=== PATIENT | female | born 1990 | race Caucasian/White ===

== ENCOUNTER 2016-07-01 19:20 | Emergency (ER) | payer OTHER ==
[2016-07-01 19:58] VITALS: TEMP 97.9
[2016-07-01] MEDS ORDERED: SODIUM CHLORIDE 0.9% 1,000 ML IV STA (21:02)
[2016-07-01] MEDS ORDERED: RX INFO: IV CONTRAST WAS GIVEN 1 EACH MISC MISCELLANE PRN (21:03)
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
[2016-07-01 21:59] LABS: Basophils % (A) 0 %; CH 30.6; CHCM 34.3; Eosinophils # (A) 0.2 k/uL (0-0.7); Eosinophils % (A) 2 %; HCT 39.7 % (34.0-46.0); HDW 2.35; HGB 13.6 gm/dL (11.4-16.0); Luc # (Auto) 0.29; Luc % (Auto) 3; Lymphocytes # (A) 2.4 k/uL (1.0-4.8); Lymphocytes % (A) 22 %; MCH 30.7 pg (25.0-35.0); MCHC 34.2 g/dL (31.0-37.0); MCV 89.6 fL (80.0-100.0); Mean Platelet Volume 7.8; Monocytes # (A) 0.4 k/uL (0-1.0); Monocytes % (A) 3 %; Neutrophils # (A) 7.8 k/uL (1.3-7.7); Neutrophils % (A) 71 %; RBC 4.43 m/uL (3.80-5.40); RDW 12.4 % (11.5-15.5); WBC 11.1 k/uL (3.8-10.6); WBC (Perox) 11.03
[2016-07-01 22:10] LABS: ALT 24 U/L (9-52); AST 17 U/L (14-36); Alkaline Phosphatase 62 U/L (38-126); Amylase 61 U/L (30-110); Anion Gap 13 mmol/L; Blood Urea Nitrogen 15 mg/dL (7-17); Calcium 9.1 mg/dL (8.4-10.2); Carbon Dioxide 23 mmol/L (22-30); Chloride 104 mmol/L (98-107); Glucose 96 mg/dL (74-99); Non-African American GFR(MDRD) >60 (>60 ml/min/1.73 sqM); Potassium 3.4 mmol/L (3.5-5.1); Sodium 140 mmol/L (137-145); Total Bilirubin 0.9 mg/dL (0.2-1.3); Total Protein 7.1 g/dL (6.3-8.2)
[2016-07-01 22:16] LABS: Appearance,Urine Clear (Clear); Bilirubin,Urine Negative (Negative); Glucose,Urine (UA) Negative (Negative); Ketones,Urine Negative (Negative); Leukocyte Esterase,Urine Negative (Negative); Mucus,Urine Rare /hpf; Nitrite,Urine Negative (Negative); PH, Urine 6.5 (5.0-8.0); Particle Count 2165; Protein,Urine Negative (Negative); Squamous Epithelial Cell,Urine 1 /hpf (0-4); UA Billing (MACRO vs. MICRO) CHEM; Urobilinogen,Urine <2.0 mg/dL (<2.0); WBC,Urine 1 /hpf (0-5)
--- NOTE | 2016-07-01 23:12 | CT ---
EXAMINATION TYPE: CT abdomen pelvis w con DATE OF EXAM: 07/01/2016 10:49 PM COMPARISON: NONE HISTORY: Pt states of abdominal pain today. CT DLP: 499.6 mGycm Automated exposure control for dose reduction was used. TECHNIQUE: Helical acquisition of images was performed from the lung bases through the pelvis. CONTRAST: Performed without Oral Contrast and with IV Contrast, patient injected with 100 mL of Omnipaque 300. FINDINGS: Lung bases are clear. There is no pleural effusion. Liver spleen pancreas gallbladder appear normal. Bile ducts are not dilated. There is no adrenal mass . There is mild bilateral hydronephrosis. There is no retroperitoneal adenopathy. There is no ascites . There is a small umbilical hernia. There is no evidence of a bowel obstruction. There are clips fro m tubal ligation. Appendix is not seen. There is no sign of appendicitis. There is probably a 2.5 cm cyst on the right ovary. I see no bony destructive process. I see no intestinal wall thickening. Ther e are no dilated loops. IMPRESSION: SMALL UMBILICAL HERNIA. BILATERAL MILD HYDRONEPHROSIS WITHOUT EVIDENCE OF RENAL ATROPHY. NO OBSTRUCTI NG CALCULUS IDENTIFIED. I do not see a cause for abdominal pain. I do not suspect renal obstruction.
[2016-07-01] MEDS ORDERED: KETOROLAC 30 MG/ML 1 ML VIAL IVP STA (23:21)
[2016-07-01 23:45] VITALS: BP 127/77; PULSE 69; RESP 18
== END 2016-07-01 23:45 | disposition home or self-care (01) ==
LOC: EC 19:20
DX: N83.201 Unspecified ovarian cyst, right side (principal); R10.31 Right lower quadrant pain; R11.0 Nausea; Z87.891 Personal history of nicotine dependence; Z88.2 Allergy status to sulfonamides
CPT/HCPCS: 36415; 80053; 82150; 83690; 85025; 81003; 81025; 87040; 87086; 74177; 99284; 96360; 96361; Q9967

== ENCOUNTER 2019-11-28 23:13 | Emergency (ER) | payer OTHER ==
[2019-11-28 23:21] VITALS: BP 138/83; PULSE 69; RESP 18; TEMP 98.3
[2019-11-29] MEDS ORDERED: predniSONE 50 MG TAB PO STA (00:15)
[2019-11-29] MEDS ORDERED: FAMOTIDINE 20 MG TAB PO STA (00:15)
[2019-11-29] MEDS ORDERED: diphenhydrAMINE 50 MG CAP PO STA (00:15)
--- NOTE | 2019-11-29 00:17 | ED ---
General Adult HPI - General Chief complaint: Skin/Abscess/Foreign Body Stated complaint: Rash on face and arms Time Seen by Provider: 11/28/19 23:35 Source: patient Mode of arrival: ambulatory Limitations: no limitations - History of Present Illness Initial comments: 29-year-old female patient presents to the emergency department today for evaluation of facial swelling and rash. Patient states that throughout the day today she noticed a rash to the medial thighs. Patient states the area is burning and somewhat itchy. States that she also had rash to her neck and developed some swelling around her right eye. Patient states that she has been wearing masks at work and is unsure she may be having a reaction. She denies any lip swelling, tongue swelling, throat swelling. Denies shortness of breath or chest pain. Denies abdominal pain. Denies taking any medication for her symptoms. Patient denies any recent rash, fever, chills, cough, abdominal pain, nausea, vomiting, diarrhea, constipation, back pain, numbness, tingling, dizziness, weakness, hematuria, dysuria, urinary urgency, urinary frequency, headache, visual changes, or any other complaints. - Related Data Previous Rx's Medication Instructions Recorded Famotidine [Pepcid] 20 mg PO DAILY #3 tablet 11/29/19 predniSONE 50 mg PO DAILY #3 tab 11/29/19 Allergies Allergy/AdvReac Type Severity Reaction Status Date / Time Sulfa (Sulfonamide Allergy Unknown Verified 11/28/19 23:21 Antibiotics) Childhood Review of Systems ROS Statement: Those systems with pertinent positive or pertinent negative responses have been documented in the HPI. ROS Other: All systems not noted in ROS Statement are negative. Past Medical History Past Medical History: Asthma Additional Past Medical History / Comment(s): heart flutter History of Any Multi-Drug Resistant Organisms: None Reported Past Surgical History: Tubal Ligation Past Psychological History: Depression Past Alcohol Use History: None Reported Past Drug Use History: None Reported - Past Family History Mother Family Medical History: Hypertension, Thyroid Disorder General Exam Limitations: no limitations General appearance: alert, in no apparent distress, other (This is a well- developed, well-nourished adult female patient in no acute distress. Vital signs upon presentation are temperature 98.3F, pulse 69, respirations 18, blood pressure 138/83, pulse ox 100% on room air.) Eye exam: Present: PERRL, EOMI, periorbital swelling (Right periorbital swelling, no erythema, no eye drainage.). Absent: scleral icterus, conjunctival injection ENT exam: Present: normal exam, normal oropharynx, mucous membranes moist Respiratory exam: Present: normal lung sounds bilaterally. Absent: respiratory distress, wheezes, rales, rhonchi, stridor Cardiovascular Exam: Present: regular rate, normal rhythm, normal heart sounds. Absent: systolic murmur, diastolic murmur, rubs, gallop, clicks GI/Abdominal exam: Present: soft, normal bowel sounds. Absent: distended, tenderness, guarding, rebound, rigid Neurological exam: Present: alert, oriented X3, CN II-XII intact Psychiatric exam: Present: normal affect, normal mood Skin exam: Present: warm, dry, intact, normal color. Absent: rash Course Vital Signs 11/28/19 23:16 Temperature 98.3 F Pulse Rate 69 Respiratory 18 Rate Blood Pressure 138/83 O2 Sat by Pulse 100 Oximetry Medical Decision Making - Medical Decision Making 20-year-old female patient presented to the emergency department today for evaluation of right periorbital swelling, rash to her thighs and back. Physical examination did reveal an urticarial type rash noted to the thighs and to the anterior neck. There is some mild right periorbital edema with no erythema or eye drainage. She had no lip, tongue, or throat swelling. No shortness of breath. She is given prednisone and Pepcid. She is given Benadryl tablets for home. She is given prescriptions for 3 days with the prednisone and Pepcid. She is instructed to follow-up with the primary care physician for recheck in 1- 2 days. Return parameters discussed in detail. He verbalizes understanding and agree with this plan. Disposition Clinical Impression: Rash, Allergic reaction Disposition: HOME SELF-CARE Condition: Good Instructions (If sedation given, give patient instructions): General Allergic Reaction (ED) Additional Instructions: Take medications as directed. Take Benadryl every 6 hours as needed. Follow-up with your primary care physician for recheck in 1-2 days. Return to the emergency department immediately for any new, worsening, or concerning symptoms. Prescriptions: Famotidine [Pepcid] 20 mg PO DAILY #3 tablet predniSONE 50 mg PO DAILY #3 tab Is patient prescribed a controlled substance at d/c from ED?: No Referrals: Rajat Trammell DO [Primary Care Provider] - 1-2 days Time of Disposition: 00:18
== END 2019-11-29 00:28 | disposition home or self-care (01) ==
LOC: EC 23:13
DX: T78.49XA Other allergy, initial encounter (principal); Z88.2 Allergy status to sulfonamides; Y92.69 Other specified industrial and construction area as the place of occurrence of the external cause
CPT/HCPCS: 99282; J7512

== ENCOUNTER → 2020-04-27 | Outpatient (CLI) | payer OTHER ==
[2020-04-27 09:12] VITALS: BP 109/64; PULSE 70; RESP 16; TEMP 98.3
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
== END | disposition home or self-care (01) ==
LOC: WWCWWP 09:02
PROVIDERS: ATTEND Surgery
DX: Z53.9 Procedure and treatment not carried out, unspecified reason (principal)